=== PATIENT | female | born 1950 | race Hispanic/Latino ===

== ENCOUNTER 2024-09-27 16:14 | Inpatient (IN) | payer MEDICARE ==
[~2024-09-27] VITALS: Ht 144.8 cm; Wt 58.1 kg
[2024-09-27] VITALS (7 sets, daily range): BP systolic 134–151; BP diastolic 57–67; PULSE 71–75; RESP 17–22; TEMP 97.8–98.3; O2SAT 92–98
[~2024-09-27 16:14] MED LIST: ASPIRIN EC81 MG PO; ATORVASTATIN CA20 MG PO; CARVEDILOL12.5 MG PO; COREG6.25 MG PO; ELIQUIS2.5 MG PO; FUROSEMIDE40 MG PO; LANTUS 3ML100 UNITS/ SQ; NIFEDIPINE ER30 M1 PO; NOVOLIN N100 UNIT/1 SQ; SODIUM BICARBO650 MG PO; TRIAMCINOLONE A15 G1 TOP
[2024-09-27 17:03] LABS: BASOPHILS % 0.2 % (0.0-1.0); EOSINOPHILS # (AUTO) 0.1 (0.0-0.4); EOSINOPHILS % 1.2 % (0.0-6.0); LYMPHOCYTES # (AUTO) 1.7 (1.0-3.2); MEAN CORPUSCULAR HEMOGLOBIN 29.4 pg (28-32); MEAN CORPUSCULAR HGB CONC 33.3 g/dL (31-35); MEAN CORPUSCULAR VOLUME 88.1 fL (81-99); MONOCYTES # (AUTO) 0.8 (0.2-0.8); NEUTROPHILS # (AUTO) 7.4 (2.1-6.9); NEUTROPHILS % 71.7 % (38.7-80.0); PLATELET COUNT 162 x10e3/uL (140-360); WHITE BLOOD COUNT 10.26 x10e3/uL (4.8-10.8)
[2024-09-27 17:07] LABS: HEMATOCRIT 14.1 % (34.2-44.1); HEMOGLOBIN 4.7 g/dL (12.0-16.0)
[2024-09-27] MEDS ORDERED: FUROSEMIDE INJ 10 MG/ML 2 ML VIAL IV SCH (17:15)
[2024-09-27] MEDS ORDERED: OCTREOTIDE ACETATE 600 MCG in SODIUM CHLORIDE 0.9% 250ML 300 ML IV SCH (17:30)
[2024-09-27] MEDS: SODIUM CHLORIDE 0.9% 500ML 500 ML IV ONE (17:38)
[2024-09-27 17:49] LABS: INR 1.08; PARTIAL THROMBOPLASTIN TIME 30.6 seconds (23.8-35.5)
[2024-09-27 17:58] LABS: ALBUMIN 2.8 g/dL (3.5-5.0); ALBUMIN/GLOBULIN RATIO 0.9 (0.8-2.0); ANION GAP 17.2 mmol/L (8-16); BILIRUBIN,TOTAL 0.3 mg/dL (0.2-1.2); CALCIUM 8.4 mg/dL (8.4-10.2); CREATININE, SERUM 3.48 mg/dL (0.57-1.11); POTASSIUM 4.2 mmol/L (3.5-5.1); TOTAL PROTEIN 5.9 g/dL (6.5-8.1)
[2024-09-27] MEDS ORDERED: ONDANSETRON HCL INJ 2MG/ML 2ML 2 MG/ML VIAL IV PRN ×2 (18:00→18:30)
[2024-09-27 18:05] LABS: TROPONIN I 0.092 ng/mL (0-0.300)
[2024-09-27] MEDS: SODIUM CHLORIDE 0.9% 250ML 250 ML IV ONE (18:12)
[2024-09-27] MEDS ORDERED: OCTREOTIDE ACETATE 0 ML ONE (18:14)
[2024-09-27] MEDS: OCTREOTIDE ACETATE 0.05 MG/ML AMP IV STA (18:17)
[2024-09-27] MEDS ORDERED: DEXTROSE 50% SYRINGE 50 ML IV PRN (18:30)
[2024-09-27] MEDS: INSULIN REGULAR, HUMAN 100 UNIT/1 ML SQ SCH (21:00)
[2024-09-27] MEDS: ATORVASTATIN 40 MG TAB PO SCH (21:43)
[2024-09-27] MEDS: FUROSEMIDE INJ 10 MG/ML 2 ML VIAL IV SCH (23:25)
[2024-09-28] VITALS (17 sets, daily range): BP systolic 131–177; BP diastolic 59–90; PULSE 68–90; RESP 18–27; TEMP 98–98.5; O2SAT 93–100
[2024-09-28] MEDS: OCTREOTIDE ACETATE 500 MCG in SODIUM CHLORIDE 0.9% 250ML 249 ML IV SCH (03:53)
[2024-09-28 04:05] LABS: FERRITIN 142.17 ng/mL (4.63-204.00)
[2024-09-28 06:25] LABS: BASOPHILS # (AUTO) 0.1 (0.0-0.1); BASOPHILS % 0.4 % (0.0-1.0); EOSINOPHILS # (AUTO) 0.2 (0.0-0.4); EOSINOPHILS % 1.4 % (0.0-6.0); HEMATOCRIT 24.6 % (34.2-44.1); HEMOGLOBIN 8.3 g/dL (12.0-16.0); LYMPHOCYTES # (AUTO) 1.6 (1.0-3.2); LYMPHOCYTES % 14.6 % (18.0-39.1); MEAN CORPUSCULAR HEMOGLOBIN 31.1 pg (28-32); MEAN CORPUSCULAR HGB CONC 33.7 g/dL (31-35); MEAN CORPUSCULAR VOLUME 92.1 fL (81-99); NEUTROPHILS # (AUTO) 8.1 (2.1-6.9); NEUTROPHILS % 72.8 % (38.7-80.0); PLATELET COUNT 132 x10e3/uL (140-360); RED BLOOD COUNT 2.67 x10e6/uL (3.6-5.1); RED CELL DISTRIBUTION WIDTH 14.8 % (11.7-14.4); WHITE BLOOD COUNT 11.13 x10e3/uL (4.8-10.8)
[2024-09-28 06:52] LABS: ALBUMIN 2.9 g/dL (3.5-5.0); ANION GAP 15.8 mmol/L (8-16); BILIRUBIN,TOTAL 1.1 mg/dL (0.2-1.2); CALCIUM 8.3 mg/dL (8.4-10.2); CREATININE, SERUM 3.31 mg/dL (0.57-1.11); POTASSIUM 3.8 mmol/L (3.5-5.1); TOTAL PROTEIN 5.9 g/dL (6.5-8.1)
[2024-09-28] MEDS: SODIUM BICARBONATE 650 MG TAB PO SCH (10:02)
[2024-09-28] MEDS: CARVEDILOL 3.125 MG TAB PO SCH (10:03)
[2024-09-28] MEDS: FUROSEMIDE 40 MG TAB PO SCH (10:03)
[2024-09-28] MEDS: SODIUM CHLORIDE 0.9% 250ML 250 ML ONE (10:38)
[2024-09-28 16:33] LABS: % IRON SATURATION 31 % (15-50); IRON 72 ug/dL (50-170); TOTAL IRON BINDING CAPACITY 231 ug/dL (261-478); TRANSFERRIN 165 mg/dL (180-382)
[2024-09-28] MEDS: NIFEDIPINE CR 30 MG TAB PO SCH (17:52)
[2024-09-28] MEDS: EPOETIN ALFA-EPBX 10,000 UNIT/ML VIAL SC SCH (18:16)
[2024-09-28] MEDS: HYDRALAZINE HCL 20 MG/ML VIAL IV PRN (23:30)
[2024-09-29] VITALS (22 sets, daily range): BP systolic 97–152; BP diastolic 46–110; PULSE 48–132; RESP 15–37; TEMP 97.8–98.8; O2SAT 94–100
[2024-09-29 07:25] LABS: BASOPHILS % 0.3 % (0.0-1.0); HEMATOCRIT 26.3 % (34.2-44.1); HEMOGLOBIN 8.7 g/dL (12.0-16.0); LYMPHOCYTES # (AUTO) 1.2 (1.0-3.2); LYMPHOCYTES % 7.5 % (18.0-39.1); MEAN CORPUSCULAR HEMOGLOBIN 30.4 pg (28-32); MEAN CORPUSCULAR HGB CONC 33.1 g/dL (31-35); MONOCYTES % 6.2 % (4.4-11.3); NEUTROPHILS % 84.4 % (38.7-80.0); PLATELET COUNT 134 x10e3/uL (140-360); RED BLOOD COUNT 2.86 x10e6/uL (3.6-5.1); RED CELL DISTRIBUTION WIDTH 15.5 % (11.7-14.4); WHITE BLOOD COUNT 15.39 x10e3/uL (4.8-10.8)
[2024-09-29 08:01] LABS: ANION GAP 16.7 mmol/L (8-16); CALCIUM 8.1 mg/dL (8.4-10.2); CREATININE, SERUM 3.38 mg/dL (0.57-1.11); POTASSIUM 3.7 mmol/L (3.5-5.1)
[2024-09-29] MEDS: SENNOSIDES 8.6 MG TAB PO SCH (08:35)
[2024-09-29] MEDS: METOPROLOL TARTRATE 50 MG TAB PO SCH (09:31)
[2024-09-29] MEDS: SODIUM BICARBONATE 650 MG TAB PO SCH (16:30)
[2024-09-29] MEDS ORDERED: DEXTROSE 50% SYRINGE 50 ML IV PRN ×2 (18:15→19:15)
[2024-09-29] MEDS: POTASSIUM CHLORIDE 20 MEQ TAB CR PO SCH (18:21)
[2024-09-29] MEDS: INSULIN REGULAR, HUMAN 100 UNIT/1 ML SQ SCH (20:45)
[2024-09-29] MEDS: LOPERAMIDE HCL 2 MG CAP PO PRN (22:06)
[2024-09-29] MEDS: TEMAZEPAM 15 MG CAP PO PRN (22:06)
[2024-09-30] VITALS (8 sets, daily range): BP systolic 146–181; BP diastolic 55–71; PULSE 66–87; RESP 16–20; TEMP 97.5–99.9; O2SAT 96–100
[2024-09-30 06:01] LABS: ANION GAP 21.2 mmol/L (8-16); CALCIUM 8.1 mg/dL (8.4-10.2); CREATININE, SERUM 3.69 mg/dL (0.57-1.11); POTASSIUM 4.2 mmol/L (3.5-5.1)
[2024-09-30 07:59] LABS: ABG HCO3 17 mmol/L (22-26); ABG PCO2 27 mmHg (35-45); ABG PO2 93 mmHg (80-105); ABG TCO2 17
[2024-09-30] MEDS ORDERED: PROTONIX20 MG PO (15:47)
[2024-09-30] MEDS ORDERED: POTASSIUM CHLO20 ME1 PO (15:47)
[2024-09-30] MEDS: SODIUM BICARBONATE 8.4% VIAL 50 ML in SODIUM CHLORIDE 0.45% 1,000 ML IV SCH (18:11)
[2024-10-01] VITALS: BP 168/50; PULSE 80; RESP 18; TEMP 99.4; O2SAT 98
[2024-10-01 04:00] VITALS: BP 178/63; PULSE 79; RESP 18; TEMP 97.9; O2SAT 95
[2024-10-01 05:53] LABS: ANION GAP 18.6 mmol/L (8-16); CALCIUM 8.1 mg/dL (8.4-10.2); CREATININE, SERUM 3.62 mg/dL (0.57-1.11); POTASSIUM 3.6 mmol/L (3.5-5.1)
[2024-10-01 07:06] VITALS: BP 185/70; PULSE 78; RESP 17; TEMP 99.2; O2SAT 99
[2024-10-01 09:30] VITALS: BP 185/70; PULSE 78; RESP 17; TEMP 99.2; O2SAT 99
[2024-10-01 11:06] VITALS: BP 191/69; PULSE 71; RESP 18; TEMP 98.9; O2SAT 98
[2024-10-01 12:59] VITALS: BP 191/69
== END 2024-10-01 15:25 | disposition home or self-care (01) | DRG 698 ==
LOC: ER 16:27 → ERHOLD 18:08 → ICU 19:46 → MED/SURG 09-29 18:35
PROVIDERS: ADMIT Internal Medicine; ATTEND Internal Medicine
PROC: 30233N1 Transfusion of Nonautologous Red Blood Cells into Peripheral Vein, Percutaneous Approach (ICD-10-PCS; principal; 2024-09-27)
DX: E11.22 Type 2 diabetes mellitus with diabetic chronic kidney disease (principal); I50.43 Acute on chronic combined systolic (congestive) and diastolic (congestive) heart failure; D62 Acute posthemorrhagic anemia; E87.1 Hypo-osmolality and hyponatremia; I13.0 Hypertensive heart and chronic kidney disease with heart failure and stage 1 through stage 4 chronic kidney disease, or unspecified chronic kidney disease; E87.20 Acidosis, unspecified; K92.2 Gastrointestinal hemorrhage, unspecified; D63.1 Anemia in chronic kidney disease; I25.10 Atherosclerotic heart disease of native coronary artery without angina pectoris; E78.5 Hyperlipidemia, unspecified; E11.649 Type 2 diabetes mellitus with hypoglycemia without coma; N17.9 Acute kidney failure, unspecified; I27.20 Pulmonary hypertension, unspecified; R53.81 Other malaise; E78.00 Pure hypercholesterolemia, unspecified; N18.5 Chronic kidney disease, stage 5; E11.65 Type 2 diabetes mellitus with hyperglycemia; I35.0 Nonrheumatic aortic (valve) stenosis; I48.0 Paroxysmal atrial fibrillation; Z79.4 Long term (current) use of insulin; Z79.01 Long term (current) use of anticoagulants; Z79.82 Long term (current) use of aspirin
CPT/HCPCS: 36415; 36600; 70450; 71045; 80048; 80053; 82270; 82607; 82728; 82746; 82805; 82948; 83010; 83036; 83540; 83615; 83735; 84443; 84466; 84484; 85025; 85045; 85610; 85730; 86850; 86900; 86920; 93005; 94799; 96372; 99284; J0360; J1938; J2353; J2354; J2470; J7040; J7050; P9016

== ENCOUNTER 2024-10-28 18:01 | Inpatient (IN) | payer MEDICARE ==
[~2024-10-28] VITALS: Ht 152.4 cm; Wt 72.1 kg
[~2024-10-28 18:01] MED LIST changes: +POTASSIUM CHLO20 ME1 PO; +PROTONIX20 MG PO
[2024-10-28] MEDS: FUROSEMIDE INJ 10 MG/ML 4 ML VIAL IV ONE (18:56)
[2024-10-28 18:58] LABS: BASOPHILS % 0.4 % (0.0-1.0); EOSINOPHILS % 0.3 % (0.0-6.0); LYMPHOCYTES % 9.0 % (18.0-39.1); MONOCYTES % 9.2 % (4.4-11.3); NEUTROPHILS % 80.3 % (38.7-80.0); RED CELL DISTRIBUTION WIDTH 14.1 % (11.7-14.4)
[2024-10-28 19:12] LABS: EST GLOMERULAR FILTRATION RATE 12.0 ML/MIN (>=60)
[2024-10-28] MEDS ORDERED: DEXTROSE 50% SYRINGE 50 ML IV PRN (20:00)
[2024-10-28 20:22] LABS: CORONAVIRUS COVID-19 AG NEGATIVE (NEGATIVE)
[2024-10-28] MEDS: INSULIN REGULAR, HUMAN 100 UNIT/1 ML SQ SCH (21:00)
[2024-10-28 21:20] VITALS: PULSE 79; RESP 33; TEMP 98.7
[2024-10-28] MEDS ORDERED: HYDRALAZINE HCL 20 MG/ML VIAL IV PRN (21:30)
[2024-10-28] MEDS ORDERED: POTASSIUM CHLORIDE 20 MEQ TAB CR PO PRN (21:30)
[2024-10-28] MEDS ORDERED: FAMOTIDINE 20 MG TAB PO PRN (21:30)
[2024-10-28] MEDS ORDERED: ACETAMINOPHEN 325 MG TAB PO PRN (21:30)
[2024-10-28] MEDS ORDERED: ONDANSETRON HCL 4 MG ORAL DISINTEGRATING TAB PO PRN (21:30)
[2024-10-28] MEDS: MAGNESIUM SULF 1GRAM/DEXTROSE 100 ML IV ONE (22:03)
[2024-10-28 22:57] VITALS: BP 128/61; PULSE 81; RESP 20; TEMP 97.2; O2SAT 95
[2024-10-28 23:11] VITALS: PULSE 78; RESP 20; O2SAT 94
[2024-10-28] MEDS ORDERED: ASPIRIN81 MG PO (23:57)
[2024-10-28] MEDS ORDERED: FEOSOL325 MG PO (23:57)
[2024-10-29] VITALS (9 sets, daily range): BP systolic 128–155; BP diastolic 51–96; PULSE 80–85; RESP 17–22; TEMP 97.7–100; O2SAT 89–96
[2024-10-29 02:19] LABS: % IRON SATURATION 11.0 % (15-50)
[2024-10-29 06:16] LABS: BASOPHILS % 0.5 % (0.0-1.0); EOSINOPHILS % 0.3 % (0.0-6.0); LYMPHOCYTES % 9.3 % (18.0-39.1); MONOCYTES % 13.5 % (4.4-11.3); NEUTROPHILS % 75.6 % (38.7-80.0); RED CELL DISTRIBUTION WIDTH 14.0 % (11.7-14.4)
[2024-10-29 06:58] LABS: EST GLOMERULAR FILTRATION RATE 11.0 ML/MIN (>=60)
[2024-10-29] MEDS: FUROSEMIDE INJ 10 MG/ML 4 ML VIAL IV SCH (09:11)
[2024-10-29] MEDS: ASPIRIN 81 MG CHEW TAB PO SCH (10:30)
[2024-10-29] MEDS: PANTOPRAZOLE SODIUM 20 MG TABLET.DR PO SCH (10:30)
[2024-10-29] MEDS: NIFEDIPINE CR 30 MG TAB PO SCH (10:31)
[2024-10-29] MEDS: CARVEDILOL 12.5 MG TAB PO SCH (10:31)
[2024-10-29] MEDS: ATORVASTATIN 40 MG TAB PO SCH (21:06)
[2024-10-30] VITALS (10 sets, daily range): BP systolic 113–136; BP diastolic 61–79; PULSE 45–107; RESP 17–20; TEMP 97.6–99.2; O2SAT 91–100
[2024-10-30 06:12] LABS: BASOPHILS % 0.5 % (0.0-1.0); EOSINOPHILS % 0.4 % (0.0-6.0); LYMPHOCYTES % 12.9 % (18.0-39.1); MONOCYTES % 11.9 % (4.4-11.3); NEUTROPHILS % 73.6 % (38.7-80.0); RED CELL DISTRIBUTION WIDTH 13.9 % (11.7-14.4)
[2024-10-30 06:38] LABS: EST GLOMERULAR FILTRATION RATE 11.0 ML/MIN (>=60)
[2024-10-30] MEDS: SODIUM BICARBONATE 650 MG TAB PO SCH (10:30)
[2024-10-30] MEDS: FUROSEMIDE INJ 100 MG in SODIUM CHLORIDE 0.9% 90 ML IV SCH (10:31)
[2024-10-30 13:50] LABS: BODY FLUID APPEARANCE TURBID; BODY FLUID COLOR RED; BODY FLUID TYPE PLEURAL; WBC,BODY FLUID 784 cells/uL
[2024-10-30] MEDS: METOLAZONE 5 MG TAB PO ONE (16:49)
[2024-10-30] MEDS: MELATONIN 5 MG TABLET PO PRN (20:46)
[2024-10-31] VITALS (10 sets, daily range): BP systolic 109–160; BP diastolic 55–75; PULSE 62–88; RESP 16–18; TEMP 97.5–98.6; O2SAT 94–99
[2024-10-31 08:24] LABS: BASOPHILS % 0.4 % (0.0-1.0); EOSINOPHILS % 2.4 % (0.0-6.0); LYMPHOCYTES % 14.5 % (18.0-39.1); MONOCYTES % 11.3 % (4.4-11.3); NEUTROPHILS % 70.8 % (38.7-80.0); RED CELL DISTRIBUTION WIDTH 14.0 % (11.7-14.4)
[2024-10-31 08:46] LABS: EST GLOMERULAR FILTRATION RATE 11.0 ML/MIN (>=60)
[2024-10-31] MEDS: HEPARIN SOD (PORCINE) 5,000 UNIT/ML VIAL SC SCH (15:18)
[2024-10-31 15:53] LABS: LYMPHOCYTES,BODY FLUID 45 %; MONO/MACROPHG,BODY FLUID 48 %; NEUTROPHILS,BODY FLUID 7 %; TOTAL CELLS COUNTED (DIFF) 100
[2024-11-01] VITALS (9 sets, daily range): BP systolic 141–170; BP diastolic 55–78; PULSE 70–83; RESP 16–18; TEMP 97.3–99.1; O2SAT 94–100
[2024-11-01 07:26] LABS: BASOPHILS % 0.5 % (0.0-1.0); EOSINOPHILS % 2.9 % (0.0-6.0); LYMPHOCYTES % 17.6 % (18.0-39.1); MONOCYTES % 11.9 % (4.4-11.3); NEUTROPHILS % 66.6 % (38.7-80.0); RED CELL DISTRIBUTION WIDTH 13.6 % (11.7-14.4)
[2024-11-01 07:56] LABS: % IRON SATURATION 18 % (15-50)
[2024-11-01 07:59] LABS: EST GLOMERULAR FILTRATION RATE 12.0 ML/MIN (>=60)
[2024-11-01] MEDS: POTASSIUM CHLORIDE 20 MEQ TAB CR PO STA (12:48)
[2024-11-02] VITALS (10 sets, daily range): BP systolic 141–176; BP diastolic 62–80; PULSE 71–84; RESP 18; TEMP 97.8–98.4; O2SAT 95–100
[2024-11-02] MEDS: IRON SUCROSE 100 MG in SODIUM CHLORIDE 0.9% 100 ML IV SCH (05:32)
[2024-11-02 06:15] LABS: BASOPHILS % 0.5 % (0.0-1.0); EOSINOPHILS % 2.4 % (0.0-6.0); LYMPHOCYTES % 22.0 % (18.0-39.1); MONOCYTES % 13.3 % (4.4-11.3); NEUTROPHILS % 61.1 % (38.7-80.0); RED CELL DISTRIBUTION WIDTH 13.7 % (11.7-14.4)
[2024-11-02 06:47] LABS: EST GLOMERULAR FILTRATION RATE 11.0 ML/MIN (>=60)
[2024-11-02] MEDS: BUMETANIDE 1 MG TAB PO SCH (09:10)
[2024-11-02 09:18] LABS: INR 0.99
[2024-11-02] MEDS ORDERED: LIDOCAINE HCL 1% 30ML-PF VIAL ONE (09:28)
[2024-11-02] MEDS ORDERED: SODIUM CHLORIDE 0.9% 500ML 500 ML ONE (09:29)
[2024-11-02 09:39] LABS: GLUCOSE,BODY FLUID 160.0 mg/dL; TOTAL PROTEIN,BODY FLUID 2.3 g/dL
[2024-11-02] MEDS ORDERED: MIDAZOLAM HCL 2 MG/2 ML VIAL ONE (10:35)
[2024-11-02] MEDS ORDERED: HEPARIN SOD (PORCINE) 1000 UNIT/ML SDV ONE (10:36)
[2024-11-02] MEDS ORDERED: FENTANYL CITRATE/PF 100MCG/2 ML INJ ONE (10:36)
[2024-11-02] MEDS ORDERED: SODIUM CHLORIDE 0.9% 250ML 250 ML ONE (10:36)
[2024-11-03] VITALS (11 sets, daily range): BP systolic 147–176; BP diastolic 58–76; PULSE 67–82; RESP 18–20; TEMP 97.7–98.9; O2SAT 96–100
[2024-11-03 05:50] LABS: BASOPHILS % 0.6 % (0.0-1.0); EOSINOPHILS % 2.9 % (0.0-6.0); LYMPHOCYTES % 24.4 % (18.0-39.1); MONOCYTES % 13.7 % (4.4-11.3); NEUTROPHILS % 57.2 % (38.7-80.0); RED CELL DISTRIBUTION WIDTH 13.8 % (11.7-14.4)
[2024-11-03 06:31] LABS: EST GLOMERULAR FILTRATION RATE 11.0 ML/MIN (>=60)
[2024-11-03] MEDS ORDERED: SODIUM CHLORIDE 0.9% 1000ML 2,000 ML ONE (07:17)
[2024-11-03] MEDS ORDERED: MANNITOL 25% 12.5GM/50ML 100 ML ONE (08:00)
[2024-11-03] MEDS ORDERED: SODIUM CHLORIDE 0.9% 1000ML 2,000 ML IV PRN (08:30)
[2024-11-03] MEDS ORDERED: MANNITOL 25% 12.5GM/50 ML VIAL IV PRN (08:30)
[2024-11-03] MEDS ORDERED: HEPARIN SOD (PORCINE) 1000 UNIT/ML SDV IV PRN (08:30)
[2024-11-03] MEDS ORDERED: HYDRALAZINE HCL 20 MG/ML VIAL IV PRN (09:00)
[2024-11-03] MEDS: NIFEDIPINE CR 30 MG TAB PO SCH (12:29)
[2024-11-03] MEDS: CARVEDILOL 12.5 MG TAB PO SCH (16:59)
[2024-11-04 08:00] VITALS: BP 153/59; PULSE 72; RESP 17; TEMP 97.8; O2SAT 100
[2024-11-04 08:18] LABS: BASOPHILS % 1.0 % (0.0-1.0); EOSINOPHILS % 3.2 % (0.0-6.0); LYMPHOCYTES % 22.8 % (18.0-39.1); MONOCYTES % 13.9 % (4.4-11.3); NEUTROPHILS % 57.9 % (38.7-80.0); RED CELL DISTRIBUTION WIDTH 13.9 % (11.7-14.4)
[2024-11-04 08:50] VITALS: PULSE 74; RESP 20; O2SAT 96
[2024-11-04 08:57] LABS: EST GLOMERULAR FILTRATION RATE 14.0 ML/MIN (>=60)
[2024-11-04 09:00] VITALS: BP 153/59; PULSE 72; RESP 17; TEMP 97.8; O2SAT 100
[2024-11-04] MEDS ORDERED: HEPARIN SOD (PORCINE) 1000 UNIT/ML SDV IV PRN (09:30)
[2024-11-04] MEDS ORDERED: ALBUMIN 25% 12.5GM 0.25 GM/ML BTL IV PRN (09:30)
[2024-11-04 09:40] LABS: HEPATITIS B CORE AB TOTAL Negative; HEPATITIS B SURFACE AB QUANT <3.5; HEPATITIS B SURFACE AG (P) Negative
[2024-11-04 12:00] VITALS: BP 161/64; PULSE 74; RESP 18; TEMP 97.5; O2SAT 100
[2024-11-04 16:00] VITALS: BP 132/68; PULSE 69; RESP 17; TEMP 97.9; O2SAT 100
[2024-11-04 20:00] VITALS: BP 147/57; PULSE 73; RESP 18; TEMP 98.6; O2SAT 97
[2024-11-05] VITALS (7 sets, daily range): BP systolic 159–173; BP diastolic 59–79; PULSE 69–76; RESP 16–20; TEMP 97.8–98.7; O2SAT 96–100
[2024-11-05 06:42] LABS: BASOPHILS % 0.6 % (0.0-1.0); EOSINOPHILS % 4.2 % (0.0-6.0); LYMPHOCYTES % 19.3 % (18.0-39.1); MONOCYTES % 14.0 % (4.4-11.3); NEUTROPHILS % 60.4 % (38.7-80.0); RED CELL DISTRIBUTION WIDTH 13.6 % (11.7-14.4)
[2024-11-05 07:18] LABS: EST GLOMERULAR FILTRATION RATE 21.0 ML/MIN (>=60)
[2024-11-05] MEDS ORDERED: BUMETANIDE1 MG PO (08:14)
[2024-11-05] MEDS ORDERED: ELIQUIS2.5 MG PO (09:34)
== END 2024-11-05 18:30 | disposition home or self-care (01) | DRG 291 ==
LOC: ER 18:42 → ERHOLD 19:51 → MED/SURG3 22:51
PROVIDERS: ADMIT Family Medicine Adult Medicine; ATTEND Family Medicine Adult Medicine
PROC: 0W993ZZ Drainage of Right Pleural Cavity, Percutaneous Approach (ICD-10-PCS; principal; 2024-10-30)
PROC: 02H633Z Insertion of Infusion Device into Right Atrium, Percutaneous Approach (ICD-10-PCS; 2024-11-02)
PROC: 0JH63XZ Insertion of Tunneled Vascular Access Device into Chest Subcutaneous Tissue and Fascia, Percutaneous Approach (ICD-10-PCS; 2024-11-02)
PROC: 5A1D70Z Performance of Urinary Filtration, Intermittent, Less than 6 Hours Per Day (ICD-10-PCS; 2024-11-03)
DX: I13.2 Hypertensive heart and chronic kidney disease with heart failure and with stage 5 chronic kidney disease, or end stage renal disease (principal); I50.43 Acute on chronic combined systolic (congestive) and diastolic (congestive) heart failure; J96.01 Acute respiratory failure with hypoxia; N18.6 End stage renal disease; J90 Pleural effusion, not elsewhere classified; E87.21 Acute metabolic acidosis; E87.22 Chronic metabolic acidosis; E87.1 Hypo-osmolality and hyponatremia; E11.22 Type 2 diabetes mellitus with diabetic chronic kidney disease; I25.10 Atherosclerotic heart disease of native coronary artery without angina pectoris; I48.0 Paroxysmal atrial fibrillation; E11.65 Type 2 diabetes mellitus with hyperglycemia; E78.5 Hyperlipidemia, unspecified; D63.1 Anemia in chronic kidney disease; I27.20 Pulmonary hypertension, unspecified; I34.0 Nonrheumatic mitral (valve) insufficiency; R74.02 Elevation of levels of lactic acid dehydrogenase [LDH]; Z11.52 Encounter for screening for COVID-19; Z79.4 Long term (current) use of insulin; Z79.82 Long term (current) use of aspirin
CPT/HCPCS: 32555; 36415; 36558; 71045; 74470; 76604; 76937; 77001; 80053; 82040; 82270; 82550; 82607; 82728; 82746; 82945; 82948; 83540; 83615; 83735; 83880; 84157; 84466; 84484; 85025; 85045; 85610; 86704; 86706; 87070; 87205; 87340; 88104; 88112; 88305; 89051; 93005; 94799; 96372; 99284; C1729; C1769; C1892; J0690; J1644; J1756; J1938; J1940; J2003; J2150; J2250; J3475; J7030; J7040; J7050

== ENCOUNTER → 2024-12-24 | Day surgery (SDC) | payer MEDICARE ==
[~2024-12-24] MED LIST changes: +ASPIRIN81 MG PO; +BUMETANIDE1 MG PO; +FEOSOL325 MG PO; +HYOSCYAMINE SULFATE 0.5 MG/ML INJ ONE; +LIDOCAINE HCL 2% LOCAL INJ 5 ML SDV VIAL INJ ONE; +PROPOFOL IV EMULSION 10 MG/ML 20 ML VIAL ONE; +SODIUM CHLORIDE 0.9% 500ML 500 ML ONE
[2024-12-24 07:48] LABS: BASOPHILS % 0.7 % (0.0-1.0); EOSINOPHILS % 2.2 % (0.0-6.0); LYMPHOCYTES % 16.7 % (18.0-39.1); MONOCYTES % 9.8 % (4.4-11.3); NEUTROPHILS % 69.6 % (38.7-80.0); RED CELL DISTRIBUTION WIDTH 15.4 % (11.7-14.4)
[2024-12-24 08:12] LABS: EST GLOMERULAR FILTRATION RATE 24.0 ML/MIN (>=60)
[2024-12-24 08:41] LABS: INR 0.92
[2024-12-24 10:15] VITALS: TEMP 97.1
[2024-12-24 10:45] VITALS: BP 127/58; PULSE 69; RESP 16; O2SAT 99
== END | disposition home or self-care (01) ==
LOC: OR 06:01
PROVIDERS: ATTEND Internal Medicine Gastroenterology
DX: D64.89 Other specified anemias (principal); K29.50 Unspecified chronic gastritis without bleeding; B96.81 Helicobacter pylori [H. pylori] as the cause of diseases classified elsewhere; K31.819 Angiodysplasia of stomach and duodenum without bleeding; K57.30 Diverticulosis of large intestine without perforation or abscess without bleeding; R19.5 Other fecal abnormalities; K64.8 Other hemorrhoids; E11.22 Type 2 diabetes mellitus with diabetic chronic kidney disease; I13.2 Hypertensive heart and chronic kidney disease with heart failure and with stage 5 chronic kidney disease, or end stage renal disease; I50.9 Heart failure, unspecified; N18.5 Chronic kidney disease, stage 5; Z71.89 Other specified counseling; I48.91 Unspecified atrial fibrillation; I25.10 Atherosclerotic heart disease of native coronary artery without angina pectoris; Z01.812 Encounter for preprocedural laboratory examination; Z79.02 Long term (current) use of antithrombotics/antiplatelets; Z79.4 Long term (current) use of insulin; Z79.899 Other long term (current) drug therapy; Z99.2 Dependence on renal dialysis; Z68.25 Body mass index [BMI] 25.0-25.9, adult; Z71.3 Dietary counseling and surveillance; Z91.81 History of falling
CPT/HCPCS: 36415; 43239; 45378; 80048; 82948; 85025; 85610; 85730; 88305; 88342; J1980; J2003; J2470; J2704; J7040